=== PATIENT | male | born 1955 | race Caucasian/White ===

== ENCOUNTER 2021-04-28 17:34 | Observation (INO) ==
[2021-04-28] MEDS ORDERED: Isovue-370 500 ML BOTTLE IVP ONE (17:35)
[2021-04-28 18:18] LABS: Hematocrit 36.3 % (37.5-50.1); Hemoglobin 11.4 g/dL (12.9-16.9); Mean Corpuscular HGB Conc 31.4 g/dL (31.6-35.5); Mean Corpuscular Hemoglobin 28.9 pg (28.0-33.3); Mean Corpuscular Volume 92.1 fL (83.0-100.0); Mean Platelet Volume 9.1 fL (9.4-12.4); Platelet Count 195 K/mcL (140-400); Red Blood Count 3.94 M/mcL (4.19-5.50); Red Cell Distribution Width 13.2 % (11.5-14.5); White Blood Count 5.3 K/mcL (4.3-11.1)
[2021-04-28] MEDS ORDERED: *HR* Labetalol 20 MG/4 ML SYRINGE IVP ONE (18:20)
[2021-04-28 18:28] LABS: Activated Partial Thrombo Time 26.7 Seconds (26.0-36.0)
[2021-04-28 18:38] LABS: BUN/Creatinine Ratio 27 (6-26); Blood Urea Nitrogen 29 mg/dL (8-23); Calcium 8.5 mg/dL (8.6-10.3); Carbon Dioxide 25 mEq/L (23-29); Chloride 104 mEq/L (98-107); Glucose 112 mg/dL (70-105); Osmolality,Calculated 291 (280-300); Potassium 4.7 mEq/L (3.5-5.1); Sodium 137 mEq/L (136-145); Troponin I < 0.03 ng/mL (< 0.04); eGFR For African Americans > 60 (> 60); eGFR For Non-African Americans > 60 (> 60)
[2021-04-28] MEDS ORDERED: Aspirin 325 MG TABLET PO ONE (19:22)
[2021-04-28] MEDS ORDERED: Acetaminophen 325 MG TABLET PO PRN (19:33)
[2021-04-28] MEDS ORDERED: Perflutren Lipid Microsphere 1.3 ML in 0.9 % Sodium Chloride 8.7 ML IVP PRN (20:09)
[2021-04-28 20:24] LABS: Influenza A PCR Negative (Negative); Influenza B PCR Negative (Negative); Resp. Syncytial Virus PCR Negative (Negative)
[2021-04-28 20:25] LABS: SARS-CoV-2 by PCR (In House) Negative (Negative)
[2021-04-29 00:37] LABS: Bilirubin,Urine Negative (Negative); Blood,Urine Trace (Negative); Clarity,Urine Clear (Clear); Color,Urine Light-Yellow (Yellow); Glucose,Urine (UA) Normal (Normal); Hyaline Casts,Urine Few per lpf (None Seen); Ketones,Urine Negative (Negative); Leukocyte Esterase,Urine Negative (Negative); Nitrite,Urine Negative (Negative); PH,Urine 6.5 pH Units (5.0-8.0); Protein,Urine Trace mg/dL (Neg-Trace); Specific Gravity,Urine > 1.030 (1.010-1.025); Urobilinogen,Urine Normal (Normal); WBC,Urine 0-3 per hpf (0-3)
[2021-04-29 00:44] LABS: Amphetamine Screen,Urine Negative ng/mL (Cutoff=1000); Barbiturate Screen,Urine Negative ng/mL (Cutoff=200); Benzodiazepines Screen,Urine Negative ng/mL (Cutoff=200); Cannabinoid Screen,Urine Negative ng/mL (Cutoff = 50); Cocaine Screen,Urine Negative ng/mL (Cutoff= 300); Opiate Screen,Urine Negative ng/mL (Cutoff=300); Phencyclidine Screen,Urine Negative ng/mL (Cutoff=25)
[2021-04-29 01:16] LABS: Chol/HDL Ratio 3.4 (0-4.9); Cholesterol 217 mg/dL (< 200); HDL Cholesterol 63 mg/dL (40-59); LDL Cholesterol,Calculated 138 mg/dL (< 100); Triglycerides 80 mg/dL (< 150); Troponin I < 0.03 ng/mL (< 0.04)
[2021-04-29 01:17] LABS: Estimated Average Glucose 108 mg/dl; Hemoglobin A1C 5.4 %
[2021-04-29 06:27] VITALS: BP 118/77; PULSE 62; TEMP 97.6; O2SAT 96
== END 2021-04-29 09:38 | disposition home or self-care (01) ==
LOC: EMEROOARM 17:34 → 3BNU 17:34
PROVIDERS: ADMIT Internal Medicine; ATTEND Internal Medicine